=== PATIENT | male | born 1955 | race Caucasian/White ===

== ENCOUNTER 2023-03-22 09:39 | Day surgery (SDC) | payer OTHER ==
[~2023-03-22] VITALS: Ht 177.8 cm; Wt 73.9 kg
[~2023-03-22 09:39] MED LIST: ASPI81TA26 PO; ATOR40TA75 PO; CETI10CH PO; DOCU100C16 PO; FINA5TAB2 PO; FLOM0.4C39 PO; FLON1SPR; METO50TA7 PO; NS 1,000 ML IV ONE; OMEP40CA4 PO; TRAZ-252 PO; WELL100T2 PO
[2023-03-22] MEDS ORDERED: LIDOCAINE 2% 100MG/5ML SDV (FOR ANES.) As Ordered ONE (10:50)
[2023-03-22] MEDS ORDERED: propofoL 200 MG/20 ML VIAL As Ordered ONE ×2 (10:50→10:51)
[2023-03-22] MEDS ORDERED: ePHEDrine SULFATE 25 MG/5 ML(5MG/ML) SYRINGE As Ordered ONE (11:01)
[2023-03-22] MEDS ORDERED: DICYCLOMINE 10 MG CAP PO STA (14:54)
[2023-03-22 15:35] VITALS: BP 140/81
== END 2023-03-22 15:53 | disposition home or self-care (01) ==
LOC: M OPP 09:39
PROVIDERS: ATTEND Internal Medicine Gastroenterology
DX: R19.4 Change in bowel habit (principal); K22.70 Barrett's esophagus without dysplasia; K57.30 Diverticulosis of large intestine without perforation or abscess without bleeding; K64.8 Other hemorrhoids; K22.89 Other specified disease of esophagus; I25.2 Old myocardial infarction; I10 Essential (primary) hypertension; E78.5 Hyperlipidemia, unspecified; K21.9 Gastro-esophageal reflux disease without esophagitis; M19.90 Unspecified osteoarthritis, unspecified site; F32.A Depression, unspecified; J44.9 Chronic obstructive pulmonary disease, unspecified; N40.0 Benign prostatic hyperplasia without lower urinary tract symptoms; F17.210 Nicotine dependence, cigarettes, uncomplicated; Z95.5 Presence of coronary angioplasty implant and graft; Z88.5 Allergy status to narcotic agent; Z88.6 Allergy status to analgesic agent; Z79.82 Long term (current) use of aspirin; Z79.899 Other long term (current) drug therapy; Z82.49 Family history of ischemic heart disease and other diseases of the circulatory system; Z83.3 Family history of diabetes mellitus